=== PATIENT | female | born 1995 | race Two or more races ===

== ENCOUNTER 2024-05-01 02:23 | Observation (INO) | payer OTHER, BC, SELFPAY ==
[2024-05-01 02:32] VITALS: BMI 32.5
[2024-05-01 02:39] VITALS: BP 113/67; PULSE 85
[2024-05-01] MEDS: BETAMET ACET/BETAMET NA PH (Celestone) 6 MG/ML VIAL 12 MG IM (03:50)
[2024-05-01] MEDS: ONDANSETRON ODT 4 MG TABRAP PO (03:52)
== END 2024-05-01 04:10 | disposition home or self-care (01) ==
PROVIDERS: Admitting Provider Specialist; Visit Provider Specialist
DX: O26.893 Other specified pregnancy related conditions, third trimester (principal); Z3A.34 34 weeks gestation of pregnancy; M54.9 Dorsalgia, unspecified
CPT/HCPCS: 59025; 59899; 96372; G0378; J0702; Q0162

== ENCOUNTER → 2024-06-06 | Outpatient (CLI) | payer OTHER, SELFPAY ==
[2024-06-07 09:09] LABS: BVAG Candida Positive (Negative); Bacterial Vaginosis Markers Negative (Negative); Candida glabrata Negative (Negative); Candida krusei PCR Negative (Negative); Trichomonas Negative (Negative)
== END | disposition home or self-care (01) ==
LOC: SLDO 16:41
PROVIDERS: Referring Provider Specialist; Visit Provider Specialist
DX: B37.31 Acute candidiasis of vulva and vagina (principal); N76.0 Acute vaginitis; A59.01 Trichomonal vulvovaginitis
CPT/HCPCS: 81514

== ENCOUNTER → 2025-01-02 | Outpatient (CLI) | payer BC, SELFPAY ==
[2025-01-02 08:15] LABS: Collection Type, Urine Clean Catch
[2025-01-02 08:52] LABS: Basophils % (Auto) 0 % (0-2.5); Eosinophils # (Auto) 0.2 Thou/mm3 (0.0-0.5); Eosinophils % (Auto) 3 % (0-10); Hemoglobin 13.6 g/dL (12.0-16.0); Immature Granulocytes % (Auto) 0 % (0-0); Immature Granulocytes Auto 0.03 Thou/mm3 (0.00-0.00); Lymphocytes # (Auto) 2.4 Thou/mm3 (1.0-4.8); Lymphocytes % (Auto) 36 % (10-50); Mean Corpuscular HGB Conc 36.8 g/dl (31.0-37.0); Mean Corpuscular Hemoglobin 31.3 pg (25.0-35.0); Mean Corpuscular Volume 85 fL (80-100); Monocytes # (Auto) 0.4 Thou/mm3 (0.0-0.8); Monocytes % (Auto) 6 % (0-12); Neutrophils # (Auto) 3.7 Thou/mm3 (1.8-7.7); Neutrophils % (Auto) 54 % (37-80); Nucleated Red Blood Cell % 0 /100 WBC (0); Platelet Count 297 Thou/mm3 (140-440); RDW Standard Deviation 37.1 fL (36.4-46.3); Red Blood Count 4.35 Miln/mm3 (4.00-5.20); White Blood Count 6.8 Thou/mm3 (3.6-11.0)
[2025-01-02 08:54] LABS: Glucose Estimated Average 77 mg/dL (80-131); Hemoglobin A1C 4.3 % Hgb (4.8-6.0)
[2025-01-02 09:07] LABS: Ferritin 68 ng/mL (7.3-270.7); Iron 76 mcg/dL (50-170); Total Iron Binding Capacity 269 mcg/dL (250-425)
[2025-01-02 09:08] LABS: Bacteria,Urine 1+; Bilirubin,Urine Negative (Negative); Blood,Urine 2+ (Negative); Clarity,Urine Clear (Clear/Hazy); Color,Urine Yellow (Lt Yel-Yel); Glucose, Urine Negative (Negative); Ketones,Urine Negative (Negative); Leukocyte Esterase,Urine Positive (Negative); Nitrite,Urine Negative (Negative); PH,Urine 5.5 (5.0-7.0); Protein,Urine Trace (Neg - Trace); RBC,Urine 3 /hpf (0-3); Specific Gravity,Urine 1.034 (1.001-1.035); Squamous Epithelial Cell,Urine 8 /hpf (0-5); Urobilinogen,Urine Negative mg/dL (0.0-1.0); WBC,Urine 19 /hpf (0-5)
[2025-01-02 09:16] LABS: Free T4 (Free Thyroxine) 1.38 ng/dL (0.89-1.76); Thyroid Stimulating Hormone 0.93 uIU/mL (0.55-4.78)
[2025-01-02 09:30] LABS: Culture Indicated,Urine Yes
[2025-01-02 11:38] LABS: Folate 18.18 ng/mL (>5.38); Follicle Stimulating Hormone 6.08 mIU/mL (See Note); Vitamin B12 337 pg/mL (211-911); Vitamin D 25 Hydroxy Total 19.9 ng/mL (7.3-40.2)
== END | disposition home or self-care (01) ==
LOC: COPL 07:31
PROVIDERS: PCP Nurse Practitioner Family; Referring Provider Nurse Practitioner Family; Visit Provider Nurse Practitioner Family
DX: E66.9 Obesity, unspecified (principal); F32.2 Major depressive disorder, single episode, severe without psychotic features; F41.9 Anxiety disorder, unspecified; F53.0 Postpartum depression; G43.111 Migraine with aura, intractable, with status migrainosus; G47.00 Insomnia, unspecified; H66.91 Otitis media, unspecified, right ear; J01.00 Acute maxillary sinusitis, unspecified; J01.10 Acute frontal sinusitis, unspecified; M25.571 Pain in right ankle and joints of right foot; M79.671 Pain in right foot; N64.4 Mastodynia; N92.6 Irregular menstruation, unspecified; R07.0 Pain in throat; R42 Dizziness and giddiness; R50.9 Fever, unspecified; U07.1 COVID-19; Z20.822 Contact with and (suspected) exposure to COVID-19; Z32.01 Encounter for pregnancy test, result positive; Z68.31 Body mass index [BMI] 31.0-31.9, adult; Z71.3 Dietary counseling and surveillance; Z72.4 Inappropriate diet and eating habits
CPT/HCPCS: 36415; 81001; 82306; 82607; 82670; 82728; 82746; 83001; 83002; 83036; 83540; 83550; 83735; 84144; 84402; 84403; 84439; 84443; 84479; 85025; 87077; 87086; 87186; 87389